=== PATIENT | male | born 1935 | race Caucasian/White ===

== ENCOUNTER 2017-01-24 21:26 | Inpatient (IN) | payer MEDICARE, OTHER ==
[~2017-01-24] VITALS: Ht 180.3 cm; Wt 78.5 kg
--- NOTE | 2017-01-24 21:45 | NUR ---
MEDICALLY CLEARED BY DR URIAS
[2017-01-24] MEDS ORDERED: DOCU100C36 PO (21:48)
[2017-01-24] MEDS ORDERED: LEVO125T8 PO (21:48)
[2017-01-24] MEDS ORDERED: AMLO10TA4 PO (21:48)
[2017-01-24] MEDS ORDERED: DIVA500T7 PO (21:48)
[2017-01-24] MEDS ORDERED: LAMO150T PO (21:48)
[2017-01-24] MEDS ORDERED: METF500T4 PO (21:48)
[2017-01-24] MEDS ORDERED: CLON1PAT2 TD (21:48)
[2017-01-24] MEDS ORDERED: ASPI81TA31 PO (21:48)
[2017-01-24] MEDS ORDERED: HYDR-3972 PO (21:48)
[2017-01-24] MEDS ORDERED: LOSA100T15 PO (21:48)
[2017-01-24] MEDS ORDERED: METO-304 PO (21:48)
[2017-01-24] MEDS ORDERED: MAGN400O6 PO (21:48)
[2017-01-24] MEDS ORDERED: ACET325C PO (21:48)
[2017-01-24] MEDS ORDERED: IPRA3AMP IH (21:48)
[2017-01-24] MEDS ORDERED: ENOX40DI SQ (21:48)
[2017-01-24] MEDS ORDERED: [UNRECOGNIZED DRUG - OTHER] PO (21:48)
[2017-01-24] MEDS ORDERED: FOLI1TAB16 PO (21:48)
--- NOTE | 2017-01-24 22:00 | NUR ---
TRANSFERED TO [facility] [place] VIA [facility]
[2017-01-24] MEDS ORDERED: ACETAMINOPHEN 325 MG TABLET PO PRN (23:00)
[2017-01-24] MEDS ORDERED: DOCUSATE SODIUM 100 MG CAPSULE PO PRN (23:00)
[2017-01-24] MEDS ORDERED: MAGNESIUM HYDROXIDE 30 ML LIQUID UDC PO PRN (23:00)
[2017-01-24] MEDS ORDERED: HYDROCODONE/APAP 5-325MG TABLET PO PRN (23:00)
[2017-01-24] MEDS ORDERED: MAG HYDROX/AL HYDROX/SIMETH 30 ML LIQUID UDC PO PRN (23:00)
[2017-01-24] MEDS ORDERED: CLONIDINE TTS 2 PATCH TD SCH (23:00)
[2017-01-24] MEDS ORDERED: TEMAZEPAM 7.5 MG CAPSULE PO PRN (23:00)
[2017-01-24] MEDS ORDERED: INSULIN REGULAR, HUMAN 300 UNIT/3 ML VIAL SQ PRN (23:15)
[2017-01-24] MEDS ORDERED: ALBUTEROL SULFATE 1.25 MG/3 ML NEBU NEB PRN (23:15)
[2017-01-24] MEDS ORDERED: DEXTROSE 50% 50 ML DISP.SYRIN IV PRN (23:15)
[2017-01-25] MEDS: LORAZEPAM 0.5 MG TABLET PO PRN ×3 (04:12→21:03)
--- NOTE | 2017-01-25 04:13 | NUR ---
GPS/NSG Admitting Note: Patient is an 81 yr old male admitted on a 5150 for Grave Disability that began 01/24/17 at 1940 and will on 01/27/17 at 1940. Patient came to [facility] after he was discharged from [facility] where he was taken by who reportedly noticed a significant change in his behavior and increased confusion. Patient has a hx of seizure disorder, diabetes melitis, hypertension, hyperthyroidism, also documented in medical record a hx of Bi-polar disorder. [facility] requested an evaluation after the patient was treated for pneumonia due to increased agitation, paranoid, aggressive behavior was exhibited by refusing care and becoming unmanageable by staff including several injections for behavior management. Upon assessment patient presented alert, confused and disorganized. Patient responded to name, did not know where he was, the current date, or reason for hospitalization. Patient did however know the bank president was "dm Prado", patient was cooperative although at the time of admission, unable to sign admission paperwork patient lacks insight into situation and judgement is impaired and comprehension is limited, patient stated his mind was all there but his body was suffering. Patient is of labile mood with blunted affect, appearance disheveled and unkempt. Skin fair with documented bruises, as well as what appeared to be a rash located on his back. Patient's belongings logged and placed in the safe. Patient under the care of Dr. Rust and Dr. Quiñones, orders obtained and carried out. Seizure precautions initiated, fall risk, will monitor closely for safety as well as provide a safe environment. Addendum: 01/25/17 at 0505 by ESTELLA TURNER RN 0500 Patient awake at this time unable to verbalize needs. Patients respirations are unlabored and vital signs are WNL. No signs of distress noted however increased anxiety manifested through restlessness. Patient is ambulatory but unsteady and at risk for falls, required redirection by staff with minimal comprehension assessed by evident confusion prn for anxiety administered as ordered with ineffective outcome. Patient requires assistance with ADLs and close observation to ensure safety. Addendum: 01/25/17 at 0601 by ESTELLA TURNER RN Patch located on right deltoid with 01/23/17 0812 documented this a.m. appears to be clonidine patch Q weekly, will endorse for follow up.
[2017-01-25] MEDS ORDERED: LORAZEPAM 0.5 MG TABLET ONE (04:27)
[2017-01-25 04:35] VITALS: BP 132/75
[2017-01-25 07:30] VITALS: BP 118/57
[2017-01-25] MEDS ORDERED: BLOOD SUGAR DIAGNOSTIC 1 EACH STRIP VI SCH (07:30)
[2017-01-25] MEDS ORDERED: Medication Not On Formulary EA (Losartan Potassium 100 MG) PO SCH (09:00)
[2017-01-25] MEDS ORDERED: ASPIRIN 81 MG TAB.CHEW PO SCH (09:00)
[2017-01-25] MEDS ORDERED: LEVOTHYROXINE SODIUM 125 MCG TABLET PO SCH (09:00)
[2017-01-25] MEDS ORDERED: AMLODIPINE 10 MG TABLET PO SCH (09:00)
[2017-01-25] MEDS ORDERED: FOLIC ACID 1 MG TABLET PO SCH (09:00)
[2017-01-25] MEDS ORDERED: METFORMIN HCL 500 MG TABLET PO SCH (09:00)
[2017-01-25] MEDS ORDERED: METOPROLOL SUCCINATE XL 50 MG TAB.SR.24H PO SCH (09:00)
--- NOTE | 2017-01-25 09:35 | NUR ---
Director Of Academic Support: RAOUL completed and submitted [employer] firearms report on 01/25/17.
--- NOTE | 2017-01-25 15:42 | NUR ---
Initial Discharge Instructions: Pt resides at home with his [[address] [place] [address]; [phone]]. Spoke with pt's , Sayda Us ([phone]) who would like pt to return home, but is open to facility placement if needed. SW will speak with pt, family, and MD regarding appropriate discharge plans. SW will form a safe discharge.
[2017-01-25 15:51] VITALS: BP 105/56
--- NOTE | 2017-01-25 17:27 | NUR ---
NOTED WITH BLANCHABLE REDNESS ON THE BUTTOCKS. ZGUARD APPLIED TO AFFECTED AREA. KEPT CLEAN AND DRY.
[2017-01-25 20:00] VITALS: BP 148/74
[2017-01-25] MEDS: DIVALPROEX 500 MG TABLET.DR PO SCH ×2 (20:33→21:00)
[2017-01-25] MEDS: Z GUARD REMEDY PASTE 57 GM TUBE TOP SCH (20:33)
[2017-01-25] MEDS: ATORVASTATIN 20 MG TABLET PO SCH (20:33)
[2017-01-25] MEDS ORDERED: OLANZAPINE 10 MG VIAL IM ONE (21:00)
[2017-01-25] MEDS ORDERED: LAMOTRIGINE 100 MG TABLET PO SCH (21:00)
--- NOTE | 2017-01-26 04:33 | NUR ---
GPS/NSG Patient visible on unit restless, confused, disorganized with what appeared to be visual hallucinations. Patient with no insight into current situation, required nursing interventions for hs medication compliance. Prn for anxiety offered, patient refused, prn for insomnia offered patient compliant with prompting however outcome observed to be ineffective, patient behavior continued to escalate patient was hostile towards staff, striking and attempting to hit staff providing care. Psychiatrist notified of behavior, IM administered as ordered with ineffective outcome patient continued to exhibit inappropriate behavior. Patient required staff times four to help into bed. Patient was hyperverbal nonsensical dialogue noted. Will continue to monitor closely to ensure safety.
[2017-01-26 07:30] VITALS: BP 127/65
[2017-01-26] MEDS: Z GUARD REMEDY PASTE 57 GM TUBE TOP SCH ×2 (08:10→20:51)
[2017-01-26] MEDS: DIVALPROEX 500 MG TABLET.DR PO SCH ×2 (08:10→20:47)
[2017-01-26] MEDS: LORAZEPAM 0.5 MG TABLET PO PRN (14:49)
[2017-01-26 16:14] VITALS: BP 169/80
[2017-01-26 20:12] VITALS: BP 143/82
[2017-01-26] MEDS: ATORVASTATIN 20 MG TABLET PO SCH (20:47)
--- NOTE | 2017-01-26 22:00 | NUR ---
received to care, lying in bed, isolative, but pleasant upon approach. observed to be talking to self, at times. compliant with medications and staff direction, but was initially suspicious and hesitant to take the meds. as of 2199, he appears to be asleep. no distress noted. will continue to monitor closely.
--- NOTE | 2017-01-27 06:00 | NUR ---
slept 10.0 hours, total. assisted with AM care, and shower. currently watching tv, with peer. no distress noted.
[2017-01-27 07:30] VITALS: BP 115/53
[2017-01-27] MEDS: Z GUARD REMEDY PASTE 57 GM TUBE TOP SCH ×2 (10:09→20:16)
[2017-01-27] MEDS: ASPIRIN EC 81 MG TABLET.DR PO SCH (10:09)
[2017-01-27] MEDS: DIVALPROEX 500 MG TABLET.DR PO SCH ×2 (10:09→20:15)
[2017-01-27 15:00] VITALS: BP 127/62
[2017-01-27 20:00] VITALS: BP 146/68
[2017-01-27] MEDS: ATORVASTATIN 20 MG TABLET PO SCH (20:15)
[2017-01-28 07:30] VITALS: BP 157/87
[2017-01-28] MEDS: ASPIRIN EC 81 MG TABLET.DR PO SCH (08:41)
[2017-01-28] MEDS: DIVALPROEX 500 MG TABLET.DR PO SCH ×2 (08:41→20:49)
[2017-01-28] MEDS: Z GUARD REMEDY PASTE 57 GM TUBE TOP SCH ×2 (08:42→21:00)
[2017-01-28 16:00] VITALS: BP 130/63
[2017-01-28] MEDS: ATORVASTATIN 20 MG TABLET PO SCH (20:49)
[2017-01-28 20:51] VITALS: BP 138/69
[2017-01-28] MEDS: Z GUARD REMEDY PASTE 57 GM TUBE TOP PRN ×2 (21:03→21:20)
[2017-01-29] MEDS: LEVOTHYROXINE SODIUM 125 MCG TABLET PO SCH (06:08)
[2017-01-29 07:30] VITALS: BP 131/72
[2017-01-29] MEDS: ASPIRIN EC 81 MG TABLET.DR PO SCH (09:05)
[2017-01-29] MEDS: METFORMIN HCL 500 MG TABLET PO SCH (09:05)
[2017-01-29] MEDS: Z GUARD REMEDY PASTE 57 GM TUBE TOP SCH ×2 (09:06→21:40)
[2017-01-29] MEDS: DIVALPROEX 500 MG TABLET.DR PO SCH ×2 (09:06→20:04)
[2017-01-29 17:17] VITALS: BP 134/79
[2017-01-29] MEDS: ATORVASTATIN 20 MG TABLET PO SCH (20:04)
[2017-01-29 21:22] VITALS: BP 122/61
--- NOTE | 2017-01-30 05:33 | NUR ---
Per MD, patient needs to bring, from home, her own medication Clobazam 10mg. Called phone [phone] last night; however, no one answer the phone. Attempted to obtained, from patient, phone number for caregiver, however, patient refused. will continue to obtained medication from home as per MD recommended. Addendum: 01/30/17 at 0544 by GILBERTO CARBAJAL RN wrong patient
[2017-01-30] MEDS: LEVOTHYROXINE SODIUM 125 MCG TABLET PO SCH (06:41)
[2017-01-30 07:44] VITALS: BP 139/69
--- NOTE | 2017-01-30 08:11 | NUR ---
DC Note: Patient will be discharged to [facility] [[address] [place] [address]; [phone]] via ambulance at 1:00pm. Spoke with Nu at the facility who states they are ready to accept patient today. Spoke with patients , Sayda who is aware and agreeable with discharge plans. Patient is aware and agreeable with discharge plans. Patient will follow-up with Dr. Quiñones (Correction Worker) and Dr. Rust (Psychiatrist) at the facility.
[2017-01-30] MEDS: Z GUARD REMEDY PASTE 57 GM TUBE TOP SCH (08:19)
[2017-01-30] MEDS: METFORMIN HCL 500 MG TABLET PO SCH (08:19)
[2017-01-30] MEDS: DIVALPROEX 500 MG TABLET.DR PO SCH (08:19)
[2017-01-30] MEDS: ASPIRIN EC 81 MG TABLET.DR PO SCH (08:19)
--- NOTE | 2017-01-30 10:46 | NUR ---
GPS: Nursing Notes: Refusing for Pictures to Taken: Patient is refusing for pictures to be taken, stated, "You do not need them.... I am too good looking.. Thank you..", continue to monitor patient for safety, continue with treatment plan.
--- NOTE | 2017-01-30 13:46 | NUR ---
GPS: Nursing Notes: Discharge Notes: Patient is awake and responding to his name, cooperative with nursing care, compliant with his medications, denies any SI/HI, denies any AH/VH, denies any pain or discomfort, denies any SOB, discharge to [facility] [place] [address] [place] [address] , Report given to facility's nurse, Ivanna RN, transported via ambulance to facility, took all his belongings with him. Irvin. W. spoke with patient's , Sayda who is aware and agreeable with discharge plans. Patient is aware and agreeable with discharge plans. Patient will follow-up with Dr. Quiñones (Shrink Pit Operator) and Dr. Rust (Psychiatrist) at the facility for aftercare.
== END 2017-01-30 13:45 | DRG 885 ==
LOC: ER 21:26 → GPS 22:16
PROVIDERS: ADMIT Psychiatry & Neurology Psychosomatic Medicine; ATTEND Internal Medicine
DX: F31.9 Bipolar disorder, unspecified (principal); F02.80 Dementia in other diseases classified elsewhere, unspecified severity, without behavioral disturbance, psychotic disturbance, mood disturbance, and anxiety; E11.9 Type 2 diabetes mellitus without complications; G30.9 Alzheimer's disease, unspecified; I10 Essential (primary) hypertension; E03.9 Hypothyroidism, unspecified; I25.10 Atherosclerotic heart disease of native coronary artery without angina pectoris; Z79.82 Long term (current) use of aspirin; Z79.84 Long term (current) use of oral hypoglycemic drugs; Z87.891 Personal history of nicotine dependence; G40.909 Epilepsy, unspecified, not intractable, without status epilepticus; G83.84 Todd's paralysis (postepileptic); Z79.899 Other long term (current) drug therapy
CPT/HCPCS: 36415; 84443; 97110; 97116; 97530; A4663; J2358